=== PATIENT | male | born 1970 | race Two or more races ===

== ENCOUNTER 2017-06-04 12:26 | Emergency (ER) | payer OTHER ==
[~2017-06-04] VITALS: Ht 180.3 cm; Wt 71.7 kg
[2017-06-04 12:38] VITALS: BP 118/62
[2017-06-04] MEDS ORDERED: ONDANSETRON HCL 4 MG/2 ML VIAL IM ONE (13:00)
[2017-06-04] MEDS ORDERED: HYDROmorphone HCL 2 MG/ML VL IM ONE (13:00)
[2017-06-04] MEDS ORDERED: METHOCARBAMOL 500 MG TAB PO ONE (13:15)
== END 2017-06-04 14:19 | disposition home or self-care (01) ==
LOC: ER 12:38
DX: M51.26 Other intervertebral disc displacement, lumbar region (principal); M54.41 Lumbago with sciatica, right side; V43.52XA Car driver injured in collision with other type car in traffic accident, initial encounter; Y93.89 Activity, other specified; Y99.8 Other external cause status; Y92.488 Other paved roadways as the place of occurrence of the external cause; Z87.891 Personal history of nicotine dependence; Z88.6 Allergy status to analgesic agent
CPT/HCPCS: 72131; 96372; 99284; J1170; J2405